=== PATIENT | female | born 1965 | race Caucasian/White ===

== ENCOUNTER 2019-10-05 19:43 | Emergency (ER) | payer OTHER ==
[~2019-10-05] VITALS: Ht 160 cm; Wt 77.1 kg
[2019-10-05] MEDS ORDERED: NAPROSYN500 MG PO (21:39)
== END 2019-10-05 21:29 | disposition home or self-care (01) ==
LOC: ED 19:43
DX: M79.672 Pain in left foot (principal); M79.671 Pain in right foot; M79.89 Other specified soft tissue disorders; Z88.5 Allergy status to narcotic agent; W18.42XA Slipping, tripping and stumbling without falling due to stepping into hole or opening, initial encounter; Y93.89 Activity, other specified; Y92.69 Other specified industrial and construction area as the place of occurrence of the external cause; Y99.8 Other external cause status

== ENCOUNTER 2019-10-26 22:21 | Emergency (ER) | payer OTHER ==
[~2019-10-26 22:21] MED LIST: NAPROSYN500 MG PO
== END 2019-10-26 23:31 | disposition home or self-care (01) ==
LOC: ED 22:21
DX: M72.2 Plantar fascial fibromatosis (principal); G89.29 Other chronic pain; G43.909 Migraine, unspecified, not intractable, without status migrainosus; Z88.5 Allergy status to narcotic agent; Z79.899 Other long term (current) drug therapy